=== PATIENT | male | born 2000 | race Caucasian/White ===

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

== ENCOUNTER 2021-06-10 12:54 | Emergency (ER) | payer OTHER, BC ==
[2021-06-10] MEDS: Bupivacaine 0.5% 10 ML SDV INJECT ONE (13:20)
[2021-06-10 13:23] VITALS: BP 106/59; PULSE 60
== END 2021-06-10 14:30 | disposition home or self-care (01) ==
LOC: LL.ED 12:54
DX: S67.192A Crushing injury of right middle finger, initial encounter (principal); S61.212A Laceration without foreign body of right middle finger without damage to nail, initial encounter; W23.1XXA Caught, crushed, jammed, or pinched between stationary objects, initial encounter
CPT/HCPCS: 12001; 73140; 99283; J3490